=== PATIENT | female | born 1980 | race Two or more races ===

== ENCOUNTER 2021-04-03 04:16 | Inpatient (IN) | payer SELFPAY ==
[~2021-04-03] VITALS: Ht 154.9 cm; Wt 74.8 kg
[2021-04-03] MEDS ORDERED: LIDOCAINE 2%HCL (LOCAL ANESTH.) INJ 20ML MDV ONE (04:48)
[2021-04-03] MEDS ORDERED: LACT. RINGERS/OXYTOCIN 20UNITS 500 ML IV ONE ×2 (05:00→06:00)
[2021-04-03] MEDS ORDERED: LACTATED RINGER'S 1,000 ML IV SCH (05:30)
[2021-04-03] MEDS ORDERED: DERMOPLAST 60ML BOTTLE TOP PRN (05:30)
[2021-04-03] MEDS ORDERED: PHISODERM TOP SOLN 240ML BTL TOP PRN (05:30)
[2021-04-03] MEDS ORDERED: WITCH HAZEL-GLYCERIN PAD TOP PRN (05:30)
[2021-04-03] MEDS: LIDOCAINE 2%HCL (LOCAL ANESTH.) INJ 20ML MDV IJ PRN ×2 (06:10→07:18)
[2021-04-03 06:31] LABS: Basophils # (auto) 0 10 ^3/uL (0-0.2); Basophils % (auto) 0.1 % (0.0-2.0); Eosinophils # (auto) 0.3 10 ^3/uL (0-0.8); Eosinophils % (auto) 2.2 % (0.0-7.0); Hematocrit 31.1 % (36.0-46.0); Lymphocytes # (auto) 1.3 10 ^3/uL (0.4-5.4); Mean Corpuscular Hemoglobin 27.8 pg (28.0-32.0); Mean Corpuscular Hgb Conc. 32.1 g/dL (32.0-36.0); Mean Corpuscular Volume 86.6 fL (80.0-100.0); Monocytes # (auto) 0.6 10 ^3/uL (0-1.3); Monocytes % (auto) 5.5 % (0.0-12.0); Neutrophils # (auto) 9.4 10 ^3/uL (1.6-8.6); Neutrophils % (auto) 81.2 % (37.0-80.0); Red Blood Cells 3.59 10^6/uL (4.0-5.20); Red Cell Distribution Width 14.5 % (11.8-14.3); White Blood Cell 11.6 10^3/uL (4.4-10.8)
[2021-04-03 06:43] LABS: Albumin 2.7 g/dL (3.4-5.0); Calcium 8.6 mg/dL (8.5-10.1); Potassium 3.9 mmol/L (3.5-5.1)
[2021-04-03 06:43] LABS: Amphetamine Screen, Urine NEGATIVE (NEGATIVE); Barbiturate Scree,Urine NEGATIVE (NEGATIVE); Benzodiazephine Screen, Urine NEGATIVE (NEGATIVE); Cannabinoid Screen, Urine NEGATIVE (NEGATIVE); Cocaine Screen, Urine NEGATIVE (NEGATIVE); Opiate Scree,Urine NEGATIVE (NEGATIVE); Phencyclidine Screen, Urine NEGATIVE (NEGATIVE)
[2021-04-03] MEDS ORDERED: IBUPROFEN 600 MG TAB PO PRN (06:45)
[2021-04-03 06:47] LABS: BUN/Creatinine Ratio 10.9; Bilirubin, Total 0.3 mg/dL (0.2-1.0); Total Protein 7.5 g/dL (6.4-8.2)
[2021-04-03 06:49] LABS: INR 0.94 (0.9-1.15); Partial Thromboplastin Time 23.6 sec (23.6-33.0)
[2021-04-03] MEDS ORDERED: ACETAMINOPHEN 325 MG TAB PO ONE (06:55)
[2021-04-03 07:00] VITALS: BP 143/65
[2021-04-03 07:15] LABS: Protein, Urine 130.3 mg/dL (0.0-11.9)
[2021-04-03 07:16] LABS: Urine Bacteria NONE SEEN /hpf (None Seen); Urine Blood 3+ /uL (Negative); Urine Hyaline Cast FEW /lpf (0 - 2); Urine Mucus FEW (None Seen); Urine Specific Gravity 1.022 (1.001-1.035); Urine WBC 20 /hpf (0 - 5)
[2021-04-03] MEDS: ACETAMINOPHEN 325 MG TAB PO PRN ×2 (07:17→14:42)
[2021-04-03 10:38] VITALS: BP 135/63
[2021-04-03] MEDS ORDERED: OXYTOCIN 10UNIT/ML 1ML VIAL IV ONE (13:33)
[2021-04-03] MEDS ORDERED: EUCERIN CREAM 2OZ TUBE TOP SCH (14:00)
[2021-04-03] MEDS ORDERED: CLOTRIMAZOLE W/ BETAMETH TOPICAL CR 15 GM TUBE TOP SCH (14:00)
[2021-04-03 14:47] VITALS: BP 133/66
[2021-04-03 19:30] VITALS: BP 126/59
[2021-04-03 23:00] VITALS: BP 122/66
[2021-04-04 03:00] VITALS: BP 125/63
[2021-04-04 07:00] VITALS: BP 117/67
[2021-04-04 10:47] VITALS: BP 121/58
[2021-04-04 11:06] LABS: RPR Non Reactive (Non Reactive)
[2021-04-04 12:15] VITALS: BP 121/58
[2021-04-06 02:06] LABS: Rubella Antibodies, IgG <0.90 index (Immune >0.99)
== END 2021-04-04 13:41 | disposition home or self-care (01) | DRG 807 ==
LOC: LDRP 04:16
PROVIDERS: ADMIT Obstetrics & Gynecology Obstetrics; ATTEND Obstetrics & Gynecology Obstetrics
PROC: 10E0XZZ Delivery of Products of Conception, External Approach (ICD-10-PCS; principal; 2021-04-03)
PROC: 10907ZC Drainage of Amniotic Fluid, Therapeutic from Products of Conception, Via Natural or Artificial Opening (ICD-10-PCS; 2021-04-03)
PROC: 0HQ9XZZ Repair Perineum Skin, External Approach (ICD-10-PCS; 2021-04-03)
DX: O62.3 Precipitate labor (principal); Z37.0 Single live birth; Z3A.38 38 weeks gestation of pregnancy; Z88.0 Allergy status to penicillin; O69.81X0 Labor and delivery complicated by cord around neck, without compression, not applicable or unspecified; O70.0 First degree perineal laceration during delivery; Z20.822 Contact with and (suspected) exposure to COVID-19
CPT/HCPCS: 36415; 59025; 59409; 80053; 80307; 81001; 82565; 82570; 84156; 84550; 85025; 85610; 85730; 86592; 86703; 86762; 86850; 86900; 86901; 87340; 87426; 94760; 96365; 96366; G0378